=== PATIENT | female | born 1995 | race African-American/Black ===

== ENCOUNTER 2020-02-18 10:20 | Emergency (ER) | payer MEDICAID ==
[~2020-02-18] VITALS: Ht 170.2 cm; Wt 73.0 kg
[2020-02-18] MEDS ORDERED: ONDANSETRON HCL 4MG/2ML INJ IV STA (10:32)
[2020-02-18] MEDS ORDERED: SODIUM CHLORIDE 0.9% 1,000 ML IV ONE (10:32)
[2020-02-18 10:59] LABS: BASOPHILS % 0.9 % (0.0-2.0); EOSINOPHILS % 1.4 % (0.0-5.0); HEMATOCRIT. 31.6 % (36.0-48.0); HEMOGLOBIN. 10.4 g/dL (12.0-16.0); LYMPHOCYTES % 12.2 % (20.0-50.0); MEAN CORPUSCULAR HEMOGLOBIN 25.3 pg (28.0-32.0); MEAN CORPUSCULAR VOLUME 77.3 fL (81.0-99.0); MEAN PLATELET VOLUME 8.3 fl (7.4-10.4); MONOCYTES % 5.2 % (2.0-8.0); NEUTROPHILS % 80.3 % (40.0-76.0); PLATELET 429 x1000/uL (130-400); RED BLOOD CELL COUNT 4.09 mill/uL (4.2-5.4)
[2020-02-18 11:07] LABS: CHLORIDE 106 mEq/L (98-107)
[2020-02-18 11:08] LABS: INR 1.1; PROTHROMBIN TIME 11.3 sec (9.6-11.0)
[2020-02-18 11:10] LABS: ETHANOL BLOOD < 10 mg/dL
[2020-02-18] MEDS ORDERED: ACETAMINOPHEN 325MG TABLET PO ONE (11:15)
[2020-02-18 12:12] LABS: HCG SCREEN NEGATIVE
[2020-02-18] MEDS ORDERED: METOCLOPRAMIDE HCL 10MG/2ML VIAL IV ONE (12:45)
[2020-02-18] MEDS ORDERED: MAGNESIUM 2 G PREMIX 50 ML IV ONE (12:45)
[2020-02-18 13:01] LABS: CLARITY URINE CLEAR (CLEAR); COLOR URINE YELLOW (YELLOW); KETONES URINE 3+ (NEGATIVE); LEUKOCYTE ESTERASE URINE TRACE (NEGATIVE); NITRITE URINE NEGATIVE (NEGATIVE); OCCULT BLOOD URINE NEGATIVE (NEGATIVE); PH URINE 6.5 (4.5-8.0); PROTEIN URINE TRACE (NEGATIVE)
[2020-02-18 13:17] LABS: *AMPHETAMINES SCREEN URINE NEGATIVE (NEGATIVE); *BARBITURATES SCREEN URINE NEGATIVE (NEGATIVE); *BENZODIAZEPINES SCREEN URINE NEGATIVE (NEGATIVE)
[2020-02-18 13:18] LABS: *COCAINE SCREEN URINE NEGATIVE (NEGATIVE); METHADONE URINE SCREEN NEGATIVE (NEGATIVE); PHENCYCLIDINE URINE SCREEN NEGATIVE (NEGATIVE)
[2020-02-18 13:19] LABS: CANNABINOID URINE SCREEN PRESUMTIVE POSITIVE (NEGATIVE); OPIATES URINE SCREEN PRESUMTIVE POSITIVE (NEGATIVE)
[2020-02-18 15:45] VITALS: BP 140/62
== END 2020-02-18 16:02 | disposition home or self-care (01) ==
LOC: ER 10:20
DX: R51 Headache (principal); R07.89 Other chest pain; E86.0 Dehydration; R53.1 Weakness; F17.290 Nicotine dependence, other tobacco product, uncomplicated; F12.10 Cannabis abuse, uncomplicated
CPT/HCPCS: 36415; 70450; 80053; 80305; 80320; 81003; 81025; 83605; 83690; 84484; 84703; 85025; 85610; 86850; 86900; 86901; 93005; 96361; 96365; 96375; 99285; J2405; J2765; J3475; J7030; G0480

== ENCOUNTER 2020-02-24 19:11 | Emergency (ER) | payer MEDICAID ==
[~2020-02-24] VITALS: Ht 154.9 cm; Wt 80.9 kg
[2020-02-24] MEDS ORDERED: ONDANSETRON HCL 4MG/2ML INJ IV STA (21:57)
[2020-02-24] MEDS ORDERED: ACETAMINOPHEN 325MG TABLET PO STA (21:57)
[2020-02-24] MEDS ORDERED: SODIUM CHLORIDE 0.9% 1,000 ML IV ONE (21:57)
[2020-02-24 22:25] LABS: BASOPHILS % 0.4 % (0.0-2.0); EOSINOPHILS % 0.7 % (0.0-5.0); HEMATOCRIT. 31.9 % (36.0-48.0); HEMOGLOBIN. 10.3 g/dL (12.0-16.0); LYMPHOCYTES % 17.7 % (20.0-50.0); MEAN CORPUSCULAR HEMOGLOBIN 24.8 pg (28.0-32.0); MEAN PLATELET VOLUME 8.4 fl (7.4-10.4); MONOCYTES % 6.7 % (2.0-8.0); NEUTROPHILS % 74.5 % (40.0-76.0); PLATELET 484 x1000/uL (130-400); RED BLOOD CELL COUNT 4.14 mill/uL (4.2-5.4); RED CELL DISTRIBUTION WIDTH 18.1 % (11.6-14.6)
[2020-02-24 22:32] LABS: CHLORIDE 107 mEq/L (98-107)
[2020-02-24 22:39] LABS: HCG SCREEN NEGATIVE
[2020-02-25] MEDS ORDERED: POTASSIUM CHLORIDE 20MEQ TABLET SR PO ONE (00:15)
[2020-02-25 00:26] VITALS: BP 122/79
== END 2020-02-25 00:33 | disposition home or self-care (01) ==
LOC: ER 19:11
DX: R11.2 Nausea with vomiting, unspecified (principal)
CPT/HCPCS: 36415; 80053; 81025; 83690; 84703; 85025; 96361; 96374; 99283; J2405; J7030

== ENCOUNTER 2022-07-02 02:31 | Emergency (ER) | payer MEDICAID ==
[~2022-07-02] VITALS: Ht 157.5 cm; Wt 99.0 kg
[2022-07-02] MEDS ORDERED: IPRATROPIUM BROMIDE (0.02%) 0.5MG/2.5ML NEB HHN STA (04:37)
[2022-07-02] MEDS ORDERED: ALBUTEROL (0.083%) 2.5MG/3ML NEB HHN STA (04:37)
[2022-07-02] MEDS ORDERED: METHYLPREDNISOLONE SOD SUCC 125 MG/2 ML VIAL IV STA (04:37)
[2022-07-02] MEDS ORDERED: SODIUM CHLORIDE 0.9% 1,000 ML IV ONE (04:45)
[2022-07-02] MEDS ORDERED: ALBU6.7H3 INH (05:15)
[2022-07-02] MEDS ORDERED: PRED10TA MT (05:15)
[2022-07-02 06:30] VITALS: BP 148/86
== END 2022-07-02 06:40 | disposition home or self-care (01) ==
LOC: ER 02:31
DX: J45.909 Unspecified asthma, uncomplicated (principal); Z88.0 Allergy status to penicillin
CPT/HCPCS: 71045; 81025; 93005; 94640; 96361; 96374; 99283; J2930; J7030; Z7610